=== PATIENT | male | born 1960 | race Caucasian/White ===

== ENCOUNTER 2022-04-25 13:37 | Inpatient (IN) | payer OTHER ==
[2022-04-25 14:27] VITALS: BMI 31.0
[2022-04-25] MEDS ORDERED: MAGNESIUM CITRATE 300 ML BOTTLE PO PRN (16:30)
[2022-04-25] MEDS ORDERED: ACETAMINOPHEN 325 MG TABLET (FP) PO PRN ×2 (16:30)
[2022-04-25] MEDS ORDERED: hydrOXYzine PAMOATE 25 MG CAPSULE (FP) PO PRN (16:30)
[2022-04-25] MEDS ORDERED: MAG HYDROX/AL HYDROX/SIMETH 30 ML UNIT-DOSE CUP PO PRN (16:30)
[2022-04-25] MEDS ORDERED: NICOTINE POLACRILEX 2 MG GUM BUC PRN (16:30)
[2022-04-25] MEDS ORDERED: NALOXONE HCL (KLOXXADO) 8 MG SPRAY NS PRN (16:30)
[2022-04-25] MEDS ORDERED: DICYCLOMINE HCL 10 MG CAPSULE PO PRN (16:30)
[2022-04-25] MEDS ORDERED: BISMUTH SUBSALICYLATE 524 MG/30 ML PO PRN (16:30)
[2022-04-25] MEDS ORDERED: BENZOCAINE/MENTHOL (CHLORASEPTIC ) LOZENGE MM PRN (16:30)
[2022-04-25] MEDS ORDERED: NICOTINE 10 MG CARTRIDGE (INHALER) IH PRN (16:30)
[2022-04-25] MEDS ORDERED: ONDANSETRON *ODT* 4 MG TABLET SL PRN (16:30)
[2022-04-25] MEDS ORDERED: LOPERAMIDE HCL 2 MG CAPSULE PO PRN (16:30)
[2022-04-25] MEDS ORDERED: IBUPROFEN 400 MG TABLET (FP) PO PRN (16:30)
[2022-04-25] MEDS ORDERED: chlordiazePOXIDE HCL 25 MG CAPSULE PO PRN (16:33)
[2022-04-25] MEDS: chlordiazePOXIDE HCL 25 MG CAPSULE PO SCH ×5 (18:09→22:09)
[2022-04-25] MEDS: THIAMINE HCL 100 MG TABLET (FP) PO SCH (22:10)
[2022-04-25] MEDS: MELATONIN 5 MG TABLETS PO SCH (22:10)
[2022-04-26] MEDS: chlordiazePOXIDE HCL 25 MG CAPSULE PO SCH ×4 (05:25→22:40)
[2022-04-26 10:13] LABS: HEMATOCRIT 38.9 % (35.4-49); HEMOGLOBIN 13.1 GM/dL (11.7-16.9); MCH 32.5 pg (25.7-33.7); MCHC 33.5 g/dl (32.0-35.9); MEAN PLT VOLUME 7.7 fl (7.5-11.1); PLATELET COUNT 260 10^3/uL (134-434); RBC 4.01 M/mm3 (4.00-5.60); RDW 13.2 % (11.9-15.9); WHITE BLOOD COUNT 5.3 K/mm3 (4.0-10.0)
[2022-04-26 10:25] LABS: ALBUMIN 3.2 g/dl (3.4-5.0); CALCIUM 8.5 mg/dL (8.5-10.1)
[2022-04-26 10:27] LABS: BILIRUBIN,TOTAL 0.2 mg/dL (0.2-1); CREATININE 1.1 mg/dL (0.55-1.3); TOT PROT 5.9 g/dl (6.4-8.2)
[2022-04-26] MEDS: PRENATAL VITAMINS W/ FOLIC ACID TABLET (FP) PO SCH (10:27)
[2022-04-26] MEDS: METHOCARBAMOL 500 MG TABLET PO PRN (10:28)
[2022-04-26] MEDS: IBUPROFEN 600 MG TABLET (FP) PO PRN (10:28)
[2022-04-26] MEDS: MAGNESIUM HYDROX 2400MG/30ML ORAL SUSPENSION 30 ML CUP PO PRN (18:58)
[2022-04-26] MEDS: THIAMINE HCL 100 MG TABLET (FP) PO SCH (22:39)
[2022-04-26] MEDS: MELATONIN 5 MG TABLETS PO SCH (22:39)
[2022-04-27] MEDS ORDERED: chlordiazePOXIDE HCL 10 MG CAPSULE PO PRN
[2022-04-27] MEDS: chlordiazePOXIDE HCL 10 MG CAPSULE PO SCH ×4 (05:16→22:06)
[2022-04-27] MEDS: PRENATAL VITAMINS W/ FOLIC ACID TABLET (FP) PO SCH (10:20)
[2022-04-27] MEDS: METHOCARBAMOL 500 MG TABLET PO PRN ×2 (10:22→22:07)
[2022-04-27] MEDS: IBUPROFEN 600 MG TABLET (FP) PO PRN (10:22)
[2022-04-27] MEDS: MAGNESIUM HYDROX 2400MG/30ML ORAL SUSPENSION 30 ML CUP PO PRN (11:55)
[2022-04-27] MEDS: THIAMINE HCL 100 MG TABLET (FP) PO SCH (22:06)
[2022-04-27] MEDS: MELATONIN 5 MG TABLETS PO SCH (22:06)
[2022-04-28] MEDS: chlordiazePOXIDE HCL 10 MG CAPSULE PO SCH ×2 (05:56→18:16)
[2022-04-28] MEDS: PRENATAL VITAMINS W/ FOLIC ACID TABLET (FP) PO SCH (10:29)
[2022-04-28 18:07] VITALS: RESP 18
[2022-04-28] MEDS: MELATONIN 5 MG TABLETS PO SCH (22:08)
[2022-04-28] MEDS: THIAMINE HCL 100 MG TABLET (FP) PO SCH (22:08)
[2022-04-28] MEDS: METHOCARBAMOL 500 MG TABLET PO PRN (22:08)
[2022-04-29] MEDS ORDERED: chlordiazePOXIDE HCL 10 MG CAPSULE PO ONE (05:00)
[2022-04-29 08:59] VITALS: TEMP 97.5
[2022-04-29 09:00] VITALS: BP 119/67; PULSE 57
[2022-04-29] MEDS: PRENATAL VITAMINS W/ FOLIC ACID TABLET (FP) PO SCH (10:11)
== END 2022-04-29 11:28 | disposition other institution (70) | DRG 774 ==
LOC: YASAS 13:37 → UNDOADMIN 17:39 → Y3N 17:39 → UNDODISIN 04-29 11:28
PROVIDERS: ADMIT Allergy & Immunology; ATTEND Surgery
PROC: HZ2ZZZZ Detoxification Services for Substance Abuse Treatment (ICD-10-PCS; principal; 2022-04-25)
DX: F10.230 Alcohol dependence with withdrawal, uncomplicated (principal); F14.20 Cocaine dependence, uncomplicated; F12.20 Cannabis dependence, uncomplicated; F17.210 Nicotine dependence, cigarettes, uncomplicated; F20.9 Schizophrenia, unspecified; M54.40 Lumbago with sciatica, unspecified side; G89.29 Other chronic pain
CPT/HCPCS: 36415; 80053; 85027; 86780; 93005; 93010; C9803-CS; U0003; U0005

== ENCOUNTER 2023-05-19 17:56 | Inpatient (IN) | payer OTHER ==
[2023-05-19 18:34] VITALS: BMI 25.5
[2023-05-19] MEDS ORDERED: MAGNESIUM HYDROX 2400MG/30ML ORAL SUSPENSION 30 ML CUP PO PRN (19:11)
[2023-05-19] MEDS ORDERED: IBUPROFEN 600 MG TABLET (FP) PO PRN (19:11)
[2023-05-19] MEDS ORDERED: NALOXONE HCL (KLOXXADO) 8 MG SPRAY NS PRN (19:11)
[2023-05-19] MEDS ORDERED: POLYETHYLENE GLYCOL (HEALTHYLAX) 3350 17 GM PACKET PO PRN (19:11)
[2023-05-19] MEDS ORDERED: METHOCARBAMOL 500 MG TABLET PO PRN (19:11)
[2023-05-19] MEDS ORDERED: MAG HYDROX/AL HYDROX/SIMETH 30 ML UNIT-DOSE CUP PO PRN (19:11)
[2023-05-19] MEDS ORDERED: IBUPROFEN 400 MG TABLET (FP) PO PRN (19:11)
[2023-05-19] MEDS ORDERED: DICYCLOMINE HCL 10 MG CAPSULE PO PRN (19:11)
[2023-05-19] MEDS ORDERED: BENZONATATE 200 MG CAPSULE PO PRN (19:11)
[2023-05-19] MEDS ORDERED: ACETAMINOPHEN 325 MG TABLET (FP) PO PRN (19:11)
[2023-05-19] MEDS ORDERED: guaiFENesin 600 MG TABLET.ER (FP) PO PRN (19:11)
[2023-05-19] MEDS ORDERED: NALOXONE HCL 0.4 MG/ML VIAL IM PRN (19:11)
[2023-05-19] MEDS ORDERED: BENZOCAINE/MENTHOL (CHLORASEPTIC ) LOZENGE MM PRN (19:11)
[2023-05-19] MEDS ORDERED: NICOTINE POLACRILEX 2 MG GUM BUC PRN (19:11)
[2023-05-19] MEDS ORDERED: LOPERAMIDE HCL 2 MG CAPSULE PO PRN (19:11)
[2023-05-19] MEDS ORDERED: ONDANSETRON *ODT* 4 MG TABLET SL PRN (19:11)
[2023-05-19] MEDS ORDERED: BISMUTH SUBSALICYLATE 524 MG/30 ML PO PRN (19:11)
[2023-05-19] MEDS ORDERED: P-EPHED 60MG/TRIPROLIDI 2.5MG TABLET PO PRN (19:11)
[2023-05-19] MEDS: THIAMINE HCL 100 MG TABLET (FP) PO SCH (22:11)
[2023-05-19] MEDS: hydrOXYzine PAMOATE 25 MG CAPSULE (FP) PO PRN (22:11)
[2023-05-19] MEDS: MELATONIN 5 MG TABLETS PO SCH (22:11)
[2023-05-20] MEDS ORDERED: chlordiazePOXIDE HCL 25 MG CAPSULE PO PRN (08:36)
[2023-05-20] MEDS: chlordiazePOXIDE HCL 25 MG CAPSULE PO SCH ×3 (10:06→22:25)
[2023-05-20] MEDS: PRENATAL VITAMINS W/ FOLIC ACID TABLET (FP) PO SCH (10:06)
[2023-05-20 11:31] LABS: HEMATOCRIT 33.2 % (35.4-49); HEMOGLOBIN 11.6 GM/dL (11.7-16.9); MCH 33.6 pg (25.7-33.7); MEAN CELL VOLUME 95.8 fl (80-96); MEAN PLT VOLUME 7.5 fl (7.5-11.1); PLATELET COUNT 231 10^3/uL (134-434); RBC 3.47 M/mm3 (4.00-5.60); RDW 13.2 % (11.9-15.9); WHITE BLOOD COUNT 5.4 K/mm3 (4.0-10.0)
[2023-05-20 12:42] LABS: CHLORIDE 109 mmol/L (98-107); POTASSIUM 3.6 mmol/L (3.5-5.1); SODIUM 141 mmol/L (136-145)
[2023-05-20 12:49] LABS: ALBUMIN 3.1 g/dl (3.4-5.0); ANION GAP 4 mmol/L (4-13); BLOOD UREA NITROGEN 12.6 mg/dL (7-18); CALCIUM 8.4 mg/dL (8.5-10.1); CO2 28 mmol/L (21-32); GLUCOSE,RANDOM 96 mg/dL (74-106)
[2023-05-20 12:52] LABS: CREATININE 0.9 mg/dL (0.55-1.3); SGOT/AST 10 U/L (15-37); SGPT/ALT 18 U/L (13-61)
[2023-05-20 12:54] LABS: BILIRUBIN,TOTAL 0.4 mg/dL (0.2-1); TOT PROT 5.8 g/dl (6.4-8.2)
[2023-05-20 12:55] LABS: ALK PHOS 73 U/L (45-117)
[2023-05-20] MEDS: MELATONIN 5 MG TABLETS PO SCH (22:25)
[2023-05-20] MEDS: THIAMINE HCL 100 MG TABLET (FP) PO SCH (22:25)
[2023-05-21] MEDS: chlordiazePOXIDE HCL 25 MG CAPSULE PO SCH ×4 (05:21→22:35)
[2023-05-21] MEDS: PRENATAL VITAMINS W/ FOLIC ACID TABLET (FP) PO SCH (10:13)
[2023-05-21] MEDS: MELATONIN 5 MG TABLETS PO SCH (22:35)
[2023-05-21] MEDS: THIAMINE HCL 100 MG TABLET (FP) PO SCH (22:36)
[2023-05-22] MEDS: chlordiazePOXIDE HCL 25 MG CAPSULE PO SCH ×4 (05:54→22:21)
[2023-05-22] MEDS: PRENATAL VITAMINS W/ FOLIC ACID TABLET (FP) PO SCH (10:37)
[2023-05-22] MEDS: MELATONIN 5 MG TABLETS PO SCH (22:20)
[2023-05-22] MEDS: THIAMINE HCL 100 MG TABLET (FP) PO SCH (22:20)
[2023-05-22] MEDS: hydrOXYzine PAMOATE 25 MG CAPSULE (FP) PO PRN (22:21)
[2023-05-23] MEDS ORDERED: chlordiazePOXIDE HCL 10 MG CAPSULE PO PRN
[2023-05-23] MEDS: chlordiazePOXIDE HCL 10 MG CAPSULE PO SCH ×4 (05:55→22:34)
[2023-05-23] MEDS: PRENATAL VITAMINS W/ FOLIC ACID TABLET (FP) PO SCH (10:12)
[2023-05-23] MEDS: MELATONIN 5 MG TABLETS PO SCH (22:34)
[2023-05-23] MEDS: THIAMINE HCL 100 MG TABLET (FP) PO SCH (22:34)
[2023-05-24] MEDS: chlordiazePOXIDE HCL 10 MG CAPSULE PO SCH ×2 (05:58→17:23)
[2023-05-24] MEDS: PRENATAL VITAMINS W/ FOLIC ACID TABLET (FP) PO SCH (10:25)
[2023-05-24 18:00] VITALS: RESP 18
[2023-05-24] MEDS: MELATONIN 5 MG TABLETS PO SCH (22:03)
[2023-05-24] MEDS: THIAMINE HCL 100 MG TABLET (FP) PO SCH (22:03)
[2023-05-25] MEDS ORDERED: chlordiazePOXIDE HCL 10 MG CAPSULE PO ONE (05:00)
[2023-05-25 09:06] VITALS: BP 112/67; PULSE 60; TEMP 98.6
== END 2023-05-25 09:12 | disposition home or self-care (01) | DRG 774 ==
LOC: YASAS 17:56 → Y3N 20:19
PROVIDERS: ADMIT Allergy & Immunology; ATTEND Surgery
PROC: HZ2ZZZZ Detoxification Services for Substance Abuse Treatment (ICD-10-PCS; principal; 2023-05-19)
DX: F10.230 Alcohol dependence with withdrawal, uncomplicated (principal); F14.20 Cocaine dependence, uncomplicated; F12.20 Cannabis dependence, uncomplicated; F17.210 Nicotine dependence, cigarettes, uncomplicated; F20.9 Schizophrenia, unspecified; M54.40 Lumbago with sciatica, unspecified side; G89.29 Other chronic pain
CPT/HCPCS: 36415; 73130-TC-LT-FY; 80053; 80307; 85027; 86780; 87635

== ENCOUNTER 2023-06-15 08:27 | Inpatient (IN) | payer OTHER ==
[2023-06-15 09:14] VITALS: BMI 27.6
[2023-06-15] MEDS ORDERED: BENZOCAINE/MENTHOL (CHLORASEPTIC ) LOZENGE MM PRN (10:12)
[2023-06-15] MEDS ORDERED: NICOTINE POLACRILEX 2 MG GUM BUC PRN (10:12)
[2023-06-15] MEDS ORDERED: LOPERAMIDE HCL 2 MG CAPSULE PO PRN (10:12)
[2023-06-15] MEDS ORDERED: NALOXONE HCL (KLOXXADO) 8 MG SPRAY NS PRN (10:12)
[2023-06-15] MEDS ORDERED: IBUPROFEN 400 MG TABLET (FP) PO PRN (10:12)
[2023-06-15] MEDS ORDERED: guaiFENesin 600 MG TABLET.ER (FP) PO PRN (10:12)
[2023-06-15] MEDS ORDERED: BENZONATATE 200 MG CAPSULE PO PRN (10:12)
[2023-06-15] MEDS ORDERED: MAG HYDROX/AL HYDROX/SIMETH 30 ML UNIT-DOSE CUP PO PRN (10:12)
[2023-06-15] MEDS ORDERED: MAGNESIUM HYDROX 2400MG/30ML ORAL SUSPENSION 30 ML CUP PO PRN (10:12)
[2023-06-15] MEDS ORDERED: NALOXONE HCL 0.4 MG/ML VIAL IM PRN (10:12)
[2023-06-15] MEDS ORDERED: COLLOIDAL OATMEAL 1 BAR EACH TP PRN (10:12)
[2023-06-15] MEDS ORDERED: ACETAMINOPHEN 325 MG TABLET (FP) PO PRN (10:12)
[2023-06-15] MEDS ORDERED: POLYETHYLENE GLYCOL (HEALTHYLAX) 3350 17 GM PACKET PO PRN (10:12)
[2023-06-15] MEDS ORDERED: TUBERCULIN PPD 5 TU/0.1ML VIAL ID ONE ×2 (12:53→13:20)
[2023-06-15] MEDS: IBUPROFEN 600 MG TABLET (FP) PO PRN (13:20)
[2023-06-15] MEDS: THIAMINE HCL 100 MG TABLET (FP) PO SCH (21:07)
[2023-06-15] MEDS: MELATONIN 5 MG TABLETS PO SCH (21:07)
[2023-06-16] MEDS: PRENATAL VITAMINS W/ FOLIC ACID TABLET (FP) PO SCH (10:01)
[2023-06-16] MEDS: NICOTINE 14 MG/24 HOURS TOPICAL PATCH TD SCH (10:01)
[2023-06-16 10:46] LABS: POTASSIUM 4.3 mmol/L (3.5-5.1)
[2023-06-16 11:13] LABS: BLOOD UREA NITROGEN 14.1 mg/dL (7-18); CALCIUM 8.3 mg/dL (8.5-10.1)
[2023-06-16 11:14] LABS: ALBUMIN 3.1 g/dl (3.4-5.0)
[2023-06-16 11:16] LABS: CREATININE 1.1 mg/dL (0.55-1.3)
[2023-06-16 11:18] LABS: BILIRUBIN,TOTAL 0.6 mg/dL (0.2-1)
[2023-06-16] MEDS ORDERED: PNEUMOC 20-VAL CONJ-DIP CRM/PF 0.5 ML SYRINGE IM ONE (12:00)
[2023-06-16] MEDS ORDERED: FLU VACCINE (FLULAVAL) PF 60 MCG/0.5 ML SYRINGE 2023-2024 IM ONE (12:00)
[2023-06-16 15:26] LABS: HEMATOCRIT 36.5 % (35.4-49); HEMOGLOBIN 12.2 GM/dL (11.7-16.9); MCH 33.3 pg (25.7-33.7); MCHC 33.5 g/dl (32.0-35.9); MEAN CELL VOLUME 99.5 fl (80-96); MEAN PLT VOLUME 7.5 fl (7.5-11.1); PLATELET COUNT 243 10^3/uL (134-434); RBC 3.67 M/mm3 (4.00-5.60); RDW 12.7 % (11.9-15.9); WHITE BLOOD COUNT 4.6 K/mm3 (4.0-10.0)
[2023-06-16] MEDS: IBUPROFEN 600 MG TABLET (FP) PO PRN (18:35)
[2023-06-16] MEDS: THIAMINE HCL 100 MG TABLET (FP) PO SCH (21:06)
[2023-06-16] MEDS: MELATONIN 5 MG TABLETS PO SCH (21:06)
[2023-06-16] MEDS ORDERED: traZODone HCL 50 MG TABLET (FP) PO SCH (22:00)
[2023-06-17] MEDS ORDERED: ARIPiprazole 5 MG TABLET PO SCH (10:00)
[2023-06-17] MEDS: PRENATAL VITAMINS W/ FOLIC ACID TABLET (FP) PO SCH (10:02)
[2023-06-17] MEDS: NICOTINE 14 MG/24 HOURS TOPICAL PATCH TD SCH (10:03)
[2023-06-17] MEDS: IBUPROFEN 600 MG TABLET (FP) PO PRN (10:03)
[2023-06-17 11:09] LABS: PH,URINE 6.5 (5.0-8.0); URINE APPEARANCE CLEAR; URINE BILIRUBIN NEGATIVE (NEGATIVE); URINE COLOR YELLOW; URINE GLUCOSE (UA) NEGATIVE (NEGATIVE); URINE KETONE NEGATIVE (NEGATIVE); URINE LEUK ESTERASE NEGATIVE (NEGATIVE); URINE NITRITE NEGATIVE (NEGATIVE); URINE PROTEIN NEGATIVE (NEGATIVE); URINE UROBILINOGEN 0.2 mg/dL (0.2-1.0)
[2023-06-17] MEDS: THIAMINE HCL 100 MG TABLET (FP) PO SCH (21:14)
[2023-06-17] MEDS: traZODone HCL 50 MG TABLET (FP) PO SCH (21:14)
[2023-06-17] MEDS: MELATONIN 5 MG TABLETS PO SCH (21:14)
[2023-06-18] MEDS: PRENATAL VITAMINS W/ FOLIC ACID TABLET (FP) PO SCH (10:04)
[2023-06-18] MEDS: NICOTINE 14 MG/24 HOURS TOPICAL PATCH TD SCH (10:04)
[2023-06-18] MEDS: ARIPiprazole 10 MG TABLET PO SCH (10:04)
[2023-06-18] MEDS: traZODone HCL 50 MG TABLET (FP) PO SCH (21:02)
[2023-06-18] MEDS: MELATONIN 5 MG TABLETS PO SCH (21:02)
[2023-06-18] MEDS: THIAMINE HCL 100 MG TABLET (FP) PO SCH (21:02)
[2023-06-19 07:15] VITALS: RESP 16; TEMP 97.8
[2023-06-19] MEDS: NICOTINE 14 MG/24 HOURS TOPICAL PATCH TD SCH (10:31)
[2023-06-19] MEDS: PRENATAL VITAMINS W/ FOLIC ACID TABLET (FP) PO SCH (10:31)
[2023-06-19] MEDS: ARIPiprazole 10 MG TABLET PO SCH (10:31)
[2023-06-19 12:00] VITALS: BP 122/69; PULSE 56
== END 2023-06-19 12:35 | disposition left against medical advice (07) | DRG 770 ==
LOC: YASAS 08:27 → Y3W 12:36
PROVIDERS: ADMIT Allergy & Immunology; ATTEND Psychiatry & Neurology Pain Medicine
PROC: HZ42ZZZ Group Counseling for Substance Abuse Treatment, Cognitive-Behavioral (ICD-10-PCS; principal; 2023-06-15)
DX: F10.20 Alcohol dependence, uncomplicated (principal); F14.20 Cocaine dependence, uncomplicated; F12.20 Cannabis dependence, uncomplicated; F17.210 Nicotine dependence, cigarettes, uncomplicated; F25.9 Schizoaffective disorder, unspecified; F19.24 Other psychoactive substance dependence with psychoactive substance-induced mood disorder; G47.00 Insomnia, unspecified; M54.40 Lumbago with sciatica, unspecified side; G89.29 Other chronic pain; Z56.0 Unemployment, unspecified; Z59.00 Homelessness unspecified; Z91.199 Patient's noncompliance with other medical treatment and regimen due to unspecified reason
CPT/HCPCS: 36415; 80053; 80307; 81003; 83036; 85027; 86780; 87635; 93005; 93010

== ENCOUNTER 2023-09-15 16:06 | Inpatient (IN) | payer OTHER ==
[2023-09-15 19:04] VITALS: BMI 29.0
[2023-09-15] MEDS ORDERED: NICOTINE POLACRILEX 2 MG LOZENGE BC PRN (20:54)
[2023-09-15] MEDS ORDERED: POLYETHYLENE GLYCOL (HEALTHYLAX) 3350 17 GM PACKET PO PRN (20:54)
[2023-09-15] MEDS ORDERED: NICOTINE POLACRILEX 2 MG GUM BUC PRN (20:54)
[2023-09-15] MEDS ORDERED: LOPERAMIDE HCL 2 MG CAPSULE PO PRN (20:54)
[2023-09-15] MEDS ORDERED: guaiFENesin 600 MG TABLET.ER (FP) PO PRN (20:54)
[2023-09-15] MEDS ORDERED: BENZONATATE 200 MG CAPSULE PO PRN (20:54)
[2023-09-15] MEDS ORDERED: MAGNESIUM HYDROX 2400MG/30ML ORAL SUSPENSION 30 ML CUP PO PRN (20:54)
[2023-09-15] MEDS ORDERED: BENZOCAINE/MENTHOL (CHLORASEPTIC ) LOZENGE MM PRN (20:54)
[2023-09-15] MEDS ORDERED: MAG HYDROX/AL HYDROX/SIMETH 30 ML UNIT-DOSE CUP PO PRN (20:54)
[2023-09-15] MEDS: traZODone HCL 50 MG TABLET (FP) PO ONE (23:41)
[2023-09-15] MEDS: MELATONIN 5 MG TABLETS PO SCH (23:41)
[2023-09-15] MEDS: THIAMINE HCL 100 MG TABLET (FP) PO SCH (23:41)
[2023-09-16] MEDS: IBUPROFEN 600 MG TABLET (FP) PO PRN (01:29)
[2023-09-16] MEDS: PRENATAL VITAMINS W/ FOLIC ACID TABLET (FP) PO SCH (09:58)
[2023-09-16 12:13] LABS: HEMOGLOBIN 11.9 GM/dL (11.7-16.9); MCH 33.1 pg (25.7-33.7); MCHC 35.1 g/dl (32.0-35.9); MEAN CELL VOLUME 94.2 fl (80-96); MEAN PLT VOLUME 7.3 fl (7.5-11.1); PLATELET COUNT 314 10^3/uL (134-434); RBC 3.61 M/mm3 (4.00-5.60); RDW 13.6 % (11.9-15.9); WHITE BLOOD COUNT 5.8 K/mm3 (4.0-10.0)
[2023-09-16 12:53] LABS: CALCIUM 8.5 mg/dL (8.5-10.1)
[2023-09-16 12:54] LABS: ALBUMIN 3.2 g/dl (3.4-5.0)
[2023-09-16 12:58] LABS: BILIRUBIN,TOTAL 0.3 mg/dL (0.2-1); TOT PROT 6.4 g/dl (6.4-8.2)
[2023-09-16] MEDS ORDERED: BENZOCAINE 20 % GEL TUBE MM PRN (13:57)
[2023-09-16] MEDS: AMOX TR/POT CLAV 500MG/125MG TABLETS (FP) PO SCH (17:14)
[2023-09-16] MEDS: traZODone HCL 50 MG TABLET (FP) PO SCH (21:06)
[2023-09-17] MEDS: ARIPiprazole 5 MG TABLET PO SCH (09:38)
[2023-09-18] MEDS: IBUPROFEN 400 MG TABLET (FP) PO PRN (17:04)
[2023-09-19] MEDS: ACETAMINOPHEN 325 MG TABLET (FP) PO PRN (09:53)
[2023-09-20] MEDS: ARIPiprazole 5 MG TABLET PO SCH (09:57)
[2023-09-20 12:31] LABS: URINE APPEARANCE CLEAR; URINE BILIRUBIN NEGATIVE (NEGATIVE); URINE COLOR YELLOW; URINE GLUCOSE (UA) NEGATIVE (NEGATIVE); URINE KETONE NEGATIVE (NEGATIVE); URINE LEUK ESTERASE NEGATIVE (NEGATIVE); URINE NITRITE NEGATIVE (NEGATIVE); URINE PROTEIN NEGATIVE (NEGATIVE); URINE UROBILINOGEN 0.2 mg/dL (0.2-1.0)
[2023-09-23 06:41] VITALS: BP 128/80; PULSE 57; RESP 18; TEMP 98.2
== END 2023-09-23 11:24 | disposition home or self-care (01) | DRG 772 ==
LOC: YASAS 16:06 → Y3E 22:59
PROVIDERS: ADMIT Allergy & Immunology; ATTEND Psychiatry & Neurology Pain Medicine
PROC: HZ42ZZZ Group Counseling for Substance Abuse Treatment, Cognitive-Behavioral (ICD-10-PCS; principal; 2023-09-15)
DX: F10.20 Alcohol dependence, uncomplicated (principal); F14.20 Cocaine dependence, uncomplicated; F12.20 Cannabis dependence, uncomplicated; F17.210 Nicotine dependence, cigarettes, uncomplicated; F25.9 Schizoaffective disorder, unspecified; F31.9 Bipolar disorder, unspecified; F19.24 Other psychoactive substance dependence with psychoactive substance-induced mood disorder; G47.00 Insomnia, unspecified; K04.7 Periapical abscess without sinus; M25.571 Pain in right ankle and joints of right foot; M54.40 Lumbago with sciatica, unspecified side; G89.29 Other chronic pain
CPT/HCPCS: 36415; 80053; 80305; 81003; 85027; 86780; 87635

== ENCOUNTER 2023-11-05 16:19 | Inpatient (IN) | payer OTHER ==
[2023-11-05 17:04] VITALS: BMI 27.3
[2023-11-05] MEDS ORDERED: BISMUTH SUBSALICYLATE 524 MG/30 ML PO PRN (19:48)
[2023-11-05] MEDS ORDERED: ACETAMINOPHEN 325 MG TABLET (FP) PO PRN (19:48)
[2023-11-05] MEDS ORDERED: MAG HYDROX/AL HYDROX/SIMETH 30 ML UNIT-DOSE CUP PO PRN (19:48)
[2023-11-05] MEDS ORDERED: BENZOCAINE/MENTHOL (CHLORASEPTIC ) LOZENGE MM PRN (19:48)
[2023-11-05] MEDS ORDERED: IBUPROFEN 400 MG TABLET (FP) PO PRN (19:48)
[2023-11-05] MEDS ORDERED: guaiFENesin 600 MG TABLET.ER (FP) PO PRN (19:48)
[2023-11-05] MEDS ORDERED: POLYETHYLENE GLYCOL (HEALTHYLAX) 3350 17 GM PACKET PO PRN (19:48)
[2023-11-05] MEDS ORDERED: NICOTINE POLACRILEX 2 MG GUM BUC PRN (19:48)
[2023-11-05] MEDS ORDERED: LOPERAMIDE HCL 2 MG CAPSULE PO PRN (19:48)
[2023-11-05] MEDS ORDERED: ONDANSETRON *ODT* 4 MG TABLET SL PRN (19:48)
[2023-11-05] MEDS ORDERED: BENZONATATE 200 MG CAPSULE PO PRN (19:48)
[2023-11-05] MEDS ORDERED: IBUPROFEN 600 MG TABLET (FP) PO PRN (19:48)
[2023-11-05] MEDS ORDERED: DICYCLOMINE HCL 10 MG CAPSULE PO PRN (19:48)
[2023-11-05] MEDS ORDERED: NICOTINE POLACRILEX 2 MG LOZENGE BC PRN (19:51)
[2023-11-05] MEDS: MELATONIN 5 MG TABLETS PO SCH (22:05)
[2023-11-05] MEDS: THIAMINE 100 MG TABLET PO SCH (22:05)
[2023-11-05] MEDS: diazePAM 5 MG TABLET PO SCH (22:06)
[2023-11-06] MEDS: diazePAM 5 MG TABLET PO SCH (05:42)
[2023-11-06] MEDS: PRENATAL VITAMINS W/ FOLIC ACID TABLET (FP) PO SCH (09:43)
[2023-11-06] MEDS: diazePAM 5 MG TABLET PO PRN (09:43)
[2023-11-06] MEDS: hydrOXYzine PAMOATE 25 MG CAPSULE (FP) PO PRN (09:43)
[2023-11-06 11:47] LABS: HEMATOCRIT 38.5 % (35.4-49); HEMOGLOBIN 13.1 GM/dL (11.7-16.9); MCH 32.6 pg (25.7-33.7); MEAN PLT VOLUME 7.5 fl (7.5-11.1); PLATELET COUNT 267 10^3/uL (134-434); RBC 4.01 M/mm3 (4.00-5.60); RDW 13.4 % (11.9-15.9); WHITE BLOOD COUNT 6.8 K/mm3 (4.0-10.0)
[2023-11-06 11:52] LABS: CHLORIDE 106 mmol/L (98-107); POTASSIUM 4.1 mmol/L (3.5-5.1); SODIUM 137 mmol/L (136-145)
[2023-11-06 12:12] LABS: ALBUMIN 3.4 g/dl (3.4-5.0); ANION GAP 2 mmol/L (4-13); CALCIUM 8.9 mg/dL (8.5-10.1); CO2 28 mmol/L (21-32); GLUCOSE,RANDOM 109 mg/dL (74-106)
[2023-11-06 12:13] LABS: BLOOD UREA NITROGEN 11.2 mg/dL (7-18)
[2023-11-06 12:15] LABS: CREATININE 0.9 mg/dL (0.55-1.3); SGOT/AST 52 U/L (15-37); SGPT/ALT 30 U/L (13-61)
[2023-11-06 12:17] LABS: ALK PHOS 87 U/L (45-117); BILIRUBIN,TOTAL 0.3 mg/dL (0.2-1); TOT PROT 6.5 g/dl (6.4-8.2)
[2023-11-06] MEDS: MAGNESIUM HYDROX 2400MG/30ML ORAL SUSPENSION 30 ML CUP PO PRN (22:07)
[2023-11-07] MEDS: METHOCARBAMOL 500 MG TABLET PO PRN (01:00)
[2023-11-07] MEDS: diazePAM 5 MG TABLET PO SCH (05:54)
[2023-11-07] MEDS ORDERED: ARIPiprazole 2 MG TABLET PO SCH (22:00)
[2023-11-07] MEDS: traZODone HCL 50 MG TABLET (FP) PO SCH (22:07)
[2023-11-08] MEDS: diazePAM 5 MG TABLET PO ONE (05:47)
[2023-11-08] MEDS: ARIPiprazole 5 MG TABLET PO SCH (09:06)
[2023-11-08 09:41] VITALS: BP 126/71; PULSE 78; RESP 17; TEMP 98
== END 2023-11-08 10:45 | disposition home or self-care (01) | DRG 774 ==
LOC: YASAS 16:19 → Y3N 20:28
PROVIDERS: ADMIT Allergy & Immunology; ATTEND Surgery
PROC: HZ2ZZZZ Detoxification Services for Substance Abuse Treatment (ICD-10-PCS; principal; 2023-11-05)
DX: F10.230 Alcohol dependence with withdrawal, uncomplicated (principal); F14.20 Cocaine dependence, uncomplicated; F12.20 Cannabis dependence, uncomplicated; F17.210 Nicotine dependence, cigarettes, uncomplicated; F19.24 Other psychoactive substance dependence with psychoactive substance-induced mood disorder; M25.511 Pain in right shoulder; M54.50 Low back pain, unspecified; G89.29 Other chronic pain; Z86.59 Personal history of other mental and behavioral disorders; Z59.00 Homelessness unspecified; Z91.199 Patient's noncompliance with other medical treatment and regimen due to unspecified reason
CPT/HCPCS: 36415; 80053; 80307; 85027; 86780

== ENCOUNTER 2024-06-13 13:18 | Inpatient (IN) | payer OTHER ==
[2024-06-13 15:49] VITALS: BMI 25.5
[2024-06-13] MEDS ORDERED: BISMUTH SUBSALICYLATE 524 MG/30 ML PO PRN (16:37)
[2024-06-13] MEDS ORDERED: LOPERAMIDE HCL 2 MG CAPSULE PO PRN (16:37)
[2024-06-13] MEDS ORDERED: NALOXONE (NARCAN) HCL 4 MG/0.1 ML SPRAY NS PRN (16:37)
[2024-06-13] MEDS ORDERED: BENZONATATE 200 MG CAPSULE PO PRN (16:37)
[2024-06-13] MEDS ORDERED: BENZOCAINE/MENTHOL (CHLORASEPTIC ) LOZENGE MM PRN (16:37)
[2024-06-13] MEDS ORDERED: chlordiazePOXIDE HCL 25 MG CAPSULE PO PRN (16:37)
[2024-06-13] MEDS ORDERED: IBUPROFEN 400 MG TABLET (FP) PO PRN (16:37)
[2024-06-13] MEDS ORDERED: ACETAMINOPHEN 325 MG TABLET (FP) PO PRN (16:37)
[2024-06-13] MEDS ORDERED: DICYCLOMINE HCL 10 MG CAPSULE PO PRN (16:37)
[2024-06-13] MEDS ORDERED: ONDANSETRON *ODT* 4 MG TABLET SL PRN (16:37)
[2024-06-13] MEDS ORDERED: chlordiazePOXIDE HCL 25 MG CAPSULE ONE (17:20)
[2024-06-13] MEDS: chlordiazePOXIDE HCL 25 MG CAPSULE PO SCH (17:22)
[2024-06-13] MEDS: guaiFENesin 600 MG TABLET.ER (FP) PO PRN (18:14)
[2024-06-13] MEDS: MELATONIN 5 MG TABLETS PO SCH (22:22)
[2024-06-13] MEDS: THIAMINE 100 MG TABLET PO SCH (22:22)
[2024-06-14] MEDS ORDERED: BACITRACIN ZINC 15 GM TUBE TOPICAL OINTMENT TP SCH (10:00)
[2024-06-14] MEDS: NICOTINE 14 MG/24 HOURS TOPICAL PATCH TD SCH (10:28)
[2024-06-14] MEDS: PRENATAL VITAMINS W/ FOLIC ACID TABLET (FP) PO SCH (10:28)
[2024-06-14] MEDS: BACITRACIN 0.9 GM PACKET TP SCH (10:47)
[2024-06-14] MEDS: POLYETHYLENE GLYCOL (HEALTHYLAX) 3350 17 GM PACKET PO PRN (11:00)
[2024-06-14 12:54] LABS: CHLORIDE 107 mmol/L (98-107); SODIUM 141 mmol/L (136-145)
[2024-06-14 12:59] LABS: HEMATOCRIT 36.9 % (35.4-49); HEMOGLOBIN 12.5 GM/dL (11.7-16.9); MCH 32.7 pg (25.7-33.7); MCHC 33.8 g/dl (32.0-35.9); MEAN CELL VOLUME 96.7 fl (80-96); MEAN PLT VOLUME 7.6 fl (7.5-11.1); PLATELET COUNT 231 10^3/uL (134-434); RBC 3.82 M/mm3 (4.00-5.60); RDW 12.4 % (11.9-15.9); WHITE BLOOD COUNT 7.3 K/mm3 (4.0-10.0)
[2024-06-14 13:02] LABS: CALCIUM 8.5 mg/dL (8.5-10.1); GLUCOSE,RANDOM 103 mg/dL (74-106)
[2024-06-14 13:03] LABS: ALBUMIN 3.1 g/dl (3.4-5.0); ANION GAP 6 mmol/L (4-13); BLOOD UREA NITROGEN 14.6 mg/dL (7-18); CO2 28 mmol/L (21-32)
[2024-06-14 13:05] LABS: SGPT/ALT 18 U/L (13-61)
[2024-06-14 13:06] LABS: BILIRUBIN,TOTAL 0.8 mg/dL (0.2-1); SGOT/AST 13 U/L (15-37); TOT PROT 5.7 g/dl (6.4-8.2)
[2024-06-14 13:07] LABS: ALK PHOS 76 U/L (45-117)
[2024-06-14 13:09] LABS: CREATININE 0.9 mg/dL (0.55-1.3)
[2024-06-14] MEDS: MAG HYDROX/AL HYDROX/SIMETH 30 ML UNIT-DOSE CUP PO PRN (22:42)
[2024-06-15] MEDS: chlordiazePOXIDE HCL 25 MG CAPSULE PO SCH (05:50)
[2024-06-15] MEDS: IBUPROFEN 600 MG TABLET (FP) PO PRN (17:15)
[2024-06-15] MEDS: MAGNESIUM HYDROX 2400MG/30ML ORAL SUSPENSION 30 ML CUP PO PRN (18:10)
[2024-06-16] MEDS ORDERED: chlordiazePOXIDE HCL 10 MG CAPSULE PO PRN
[2024-06-16] MEDS: chlordiazePOXIDE HCL 10 MG CAPSULE PO SCH (05:58)
[2024-06-16] MEDS: BISACODYL 5 MG TABLET.DR (FP) PO ONE (11:00)
[2024-06-16] MEDS: DOCUSATE SODIUM 100 MG CAPSULE (FP) PO SCH (13:09)
[2024-06-16] MEDS: chlordiazePOXIDE 5 MG CAPSULE PO SCH (17:29)
[2024-06-16] MEDS: SENNOSIDES 8.6MG TABLET (FP) PO SCH (22:09)
[2024-06-17] MEDS: chlordiazePOXIDE HCL 10 MG CAPSULE PO SCH (05:05)
[2024-06-18] MEDS: chlordiazePOXIDE HCL 10 MG CAPSULE PO ONE (05:33)
[2024-06-18] MEDS: NALOXONE (NYS OPIOID OVERDOSE PROGRAM) 4 MG/0.1 ML SPRAY NS SCH (08:42)
[2024-06-18] MEDS: METHOCARBAMOL 500 MG TABLET PO PRN (22:12)
[2024-06-18] MEDS: hydrOXYzine PAMOATE 25 MG CAPSULE (FP) PO PRN (22:12)
[2024-06-20 06:17] VITALS: RESP 16; TEMP 97.7
[2024-06-20 09:16] VITALS: BP 122/71; PULSE 73
== END 2024-06-20 09:35 | disposition home or self-care (01) | DRG 774 ==
LOC: YASAS 13:18 → Y6N 17:17
PROVIDERS: ADMIT Allergy & Immunology; ATTEND Surgery
PROC: HZ2ZZZZ Detoxification Services for Substance Abuse Treatment (ICD-10-PCS; principal; 2024-06-13)
DX: F10.230 Alcohol dependence with withdrawal, uncomplicated (principal); F14.20 Cocaine dependence, uncomplicated; F12.20 Cannabis dependence, uncomplicated; F17.210 Nicotine dependence, cigarettes, uncomplicated; F19.282 Other psychoactive substance dependence with psychoactive substance-induced sleep disorder; F19.24 Other psychoactive substance dependence with psychoactive substance-induced mood disorder; F20.9 Schizophrenia, unspecified; M54.50 Low back pain, unspecified; G89.29 Other chronic pain; Z62.810 Personal history of physical and sexual abuse in childhood; Z99.89 Dependence on other enabling machines and devices
CPT/HCPCS: 0241U-QW; 36415; 80053; 80305; 80307; 85027; 86780; 87811; 93005; 93010